=== PATIENT | male | born 1985 | race Caucasian/White ===

== ENCOUNTER 2018-05-14 14:34 | Emergency (ER) | payer OTHER ==
[2018-05-14 15:37] LABS: BASOPHILS % (AUTO) 0.8 % (0.0-5.0); EOSINOPHILS % (AUTO) 0.8 % (0.0-8.0); HEMATOCRIT 39.9 % (42-54); LYMPHOCYTES % (AUTO) 19.3 % (21.0-51.0); MEAN CORPUSCULAR HEMOGLOBIN 29.6 pg (27.0-33.0); MEAN CORPUSCULAR HGB CONC 33.6 g/dL (32.0-36.0); MEAN CORPUSCULAR VOLUME 88.3 fL (79-99); MONOCYTES % (AUTO) 7.7 % (3.0-13.0); NEUTROPHILS % (AUTO) 71.4 % (40.0-77.0); PLATELET COUNT (AUTO) 256 K/uL (130-400); RED BLOOD CELL COUNT(AUTO) 4.52 MIL/uL (4.50-6.20); RED CELL DISTRIBUTION WIDTH 13.3 % (11.0-15.5); WHITE BLOOD COUNT (AUTO) 8.4 K/uL (4.8-10.8)
[2018-05-14 15:49] LABS: CARBON DIOXIDE 27 mmol/L (21-32); CHLORIDE 102 mmol/L (101-111); CREATININE 1.1 mg/dL (0.5-1.5); GLOMERULAR FILTR. RATE CALC 83 mL/min (>60); GLUCOSE,RANDOM 100 mg/dL (70-105); SODIUM SERUM 138 mmol/L (136-145); UREA NITROGEN, BLOOD 12 mg/dL (7-18)
[2018-05-14 15:51] LABS: INR 0.93 (0.85-1.15); PARTIAL THROMBOPLASTIN TIME 30.9 SEC (26.3-35.5); PROTHROMBIN TIME 9.8 SEC (9.6-11.6)
[2018-05-14] MEDS ORDERED: SODIUM CHLORIDE 0.9% 1000ML 1,000 ML IV ONE (15:51)
[2018-05-14 15:54] LABS: ALANINE AMINOTRANSFERASE 37 U/L (12-78); ALBUMIN 4.1 g/dL (3.5-5.0); ALCOHOL, BLOOD < 3 mg/dL (0-10); ASPARTATE AMINOTRANSFERASE 18 U/L (10-37); BILIRUBIN,TOTAL 0.5 mg/dL (0.2-1.0); CREATINE KINASE, TOTAL 135 U/L (21-232); TOTAL PROTEIN, SERUM 7.9 g/dL (6.0-8.3)
[2018-05-14 16:00] LABS: ACETAMINOPHEN < 1 mcg/mL (10-29); SALICYLATE < 2.8 mg/dL (2.8-20.0)
[2018-05-14 16:01] LABS: APPEARANCE,URINE Clear (CLEAR); BILIRUBIN,URINE Negative (NEGATIVE); COLOR,URINE Yellow (YELLOW); GLUCOSE, URINE (UA) Negative (NEGATIVE); KETONES,URINE Negative (NEGATIVE); LEUKOCYTE ESTERASE ,URINE Negative (NEGATIVE); NITRATE,URINE Negative (NEGATIVE); OCCULT BLOOD,URINE Negative (NEGATIVE); PH,URINE 6.5 (5.0-8.0); PROTEIN,URINE Negative (NEGATIVE); UROBILINOGEN,URINE 0.2 mg/dL (0.2-1.0)
[2018-05-14 16:09] LABS: AMPHET/METH SCREEN,URINE NEGATIVE (NEGATIVE); BARBITURATE SCREEN, URINE NEGATIVE (NEGATIVE); BENZODIAZEPINES SCREEN,URINE POSITIVE (NEGATIVE); CANNABINOID SCREEN,URINE NEGATIVE (NEGATIVE); COCAINE SCREEN,URINE NEGATIVE (NEGATIVE); OPIATE SCREEN,URINE NEGATIVE (NEGATIVE); PHENCYCLIDINE SCREEN,URINE NEGATIVE (NEGATIVE)
[2018-05-14] MEDS ORDERED: TRAMADOL HCL 50 MG TABLET ONE (19:58)
== END 2018-05-14 20:52 | disposition home or self-care (01) ==
LOC: EDH 14:34
DX: S06.9X0A Unspecified intracranial injury without loss of consciousness, initial encounter (principal); R44.0 Auditory hallucinations; R47.81 Slurred speech; R53.83 Other fatigue; T42.4X5A Adverse effect of benzodiazepines, initial encounter; X58.XXXA Exposure to other specified factors, initial encounter; Y93.89 Activity, other specified; Y99.8 Other external cause status
CPT/HCPCS: 36415; 70450; 80053; 80305; 81003; 82550; 84484; 85025; 85610; 85730; 93005; 99284; G0480 ×2; G0481; J7030

== ENCOUNTER 2018-06-04 22:12 | Emergency (ER) | payer OTHER ==
[2018-06-04 22:37] LABS: APPEARANCE,URINE Clear (CLEAR); BILIRUBIN,URINE Negative (NEGATIVE); COLOR,URINE Yellow (YELLOW); GLUCOSE, URINE (UA) Negative (NEGATIVE); KETONES,URINE Negative (NEGATIVE); LEUKOCYTE ESTERASE ,URINE Negative (NEGATIVE); NITRATE,URINE Negative (NEGATIVE); OCCULT BLOOD,URINE Negative (NEGATIVE); PH,URINE 6.5 (5.0-8.0); PROTEIN,URINE Negative (NEGATIVE); UROBILINOGEN,URINE 0.2 mg/dL (0.2-1.0)
[2018-06-04 22:43] LABS: EOSINOPHILS % (AUTO) 1.4 % (0.0-8.0); HEMATOCRIT 42.6 % (42-54); LYMPHOCYTES % (AUTO) 20.9 % (21.0-51.0); MEAN CORPUSCULAR HEMOGLOBIN 29.3 pg (27.0-33.0); MEAN CORPUSCULAR VOLUME 88.8 fL (79-99); MONOCYTES % (AUTO) 9.4 % (3.0-13.0); NEUTROPHILS % (AUTO) 67.3 % (40.0-77.0); NUCLEATED RED BLOOD CELLS 0.1 % (0.0-0.19); PLATELET COUNT (AUTO) 301 K/uL (130-400); RED BLOOD CELL COUNT(AUTO) 4.79 MIL/uL (4.50-6.20); RED CELL DISTRIBUTION WIDTH 13.2 % (11.0-15.5); WHITE BLOOD COUNT (AUTO) 8.6 K/uL (4.8-10.8)
[2018-06-04 22:44] LABS: AMPHET/METH SCREEN,URINE NEGATIVE (NEGATIVE); BARBITURATE SCREEN, URINE NEGATIVE (NEGATIVE); BENZODIAZEPINES SCREEN,URINE POSITIVE (NEGATIVE); CANNABINOID SCREEN,URINE NEGATIVE (NEGATIVE); COCAINE SCREEN,URINE NEGATIVE (NEGATIVE); OPIATE SCREEN,URINE NEGATIVE (NEGATIVE); PHENCYCLIDINE SCREEN,URINE NEGATIVE (NEGATIVE)
[2018-06-04 22:55] LABS: CARBON DIOXIDE 31 mmol/L (21-32); CHLORIDE 100 mmol/L (101-111); CREATININE 1.1 mg/dL (0.5-1.5); GLOMERULAR FILTR. RATE CALC 83 mL/min (>60); GLUCOSE,RANDOM 77 mg/dL (70-105); POTASSIUM 3.7 mmol/L (3.5-5.1); SODIUM SERUM 141 mmol/L (136-145); UREA NITROGEN, BLOOD 10 mg/dL (7-18)
[2018-06-04 22:59] LABS: ALANINE AMINOTRANSFERASE 29 U/L (12-78); ASPARTATE AMINOTRANSFERASE 17 U/L (10-37); BILIRUBIN,TOTAL 0.5 mg/dL (0.2-1.0); SALICYLATE < 2.8 mg/dL (2.8-20.0); TOTAL PROTEIN, SERUM 8.4 g/dL (6.0-8.3)
[2018-06-04 23:00] LABS: ACETAMINOPHEN < 1 mcg/mL (10-29); ALCOHOL, BLOOD < 3 mg/dL (0-10)
== END 2018-06-05 16:48 | disposition short-term general hospital (02) ==
LOC: EDH 22:12
DX: T14.91XA Suicide attempt, initial encounter (principal); F20.9 Schizophrenia, unspecified; G89.29 Other chronic pain; M54.9 Dorsalgia, unspecified; X83.8XXA Intentional self-harm by other specified means, initial encounter; Y93.89 Activity, other specified; Y92.89 Other specified places as the place of occurrence of the external cause; Y99.8 Other external cause status
CPT/HCPCS: 36415; 80053; 80305; 81003; 85025; 99285; G0480 ×2; G0481

== ENCOUNTER 2019-02-26 14:10 | Emergency (ER) | payer OTHER ==
[2019-02-26 15:03] LABS: BASOPHILS % (AUTO) 0.7 % (0.0-5.0); EOSINOPHILS % (AUTO) 0.3 % (0.0-8.0); HEMATOCRIT 42.2 % (42-54); LYMPHOCYTES % (AUTO) 11.1 % (21.0-51.0); MEAN CORPUSCULAR HEMOGLOBIN 29.9 pg (27.0-33.0); MEAN CORPUSCULAR HGB CONC 34.3 g/dL (32.0-36.0); MEAN CORPUSCULAR VOLUME 87.1 fL (79-99); MONOCYTES % (AUTO) 9.8 % (3.0-13.0); NEUTROPHILS % (AUTO) 78.1 % (40.0-77.0); PLATELET COUNT (AUTO) 314 K/uL (130-400); RED BLOOD CELL COUNT(AUTO) 4.85 MIL/uL (4.50-6.20); RED CELL DISTRIBUTION WIDTH 13.8 % (11.0-15.5); WHITE BLOOD COUNT (AUTO) 12.3 K/uL (4.8-10.8)
[2019-02-26 15:47] LABS: CARBON DIOXIDE 25 mmol/L (21-32); CHLORIDE 99 mmol/L (101-111); CREATININE 1.3 mg/dL (0.5-1.5); GLOMERULAR FILTR. RATE CALC 68 mL/min (>60); GLUCOSE,RANDOM 90 mg/dL (70-105); POTASSIUM 3.6 mmol/L (3.5-5.1); SODIUM SERUM 137 mmol/L (136-145); UREA NITROGEN, BLOOD 8 mg/dL (7-18)
[2019-02-26 16:02] LABS: ALANINE AMINOTRANSFERASE 19 U/L (12-78); ALBUMIN 4.6 g/dL (3.5-5.0); ALCOHOL, BLOOD < 3 mg/dL (0-10); ASPARTATE AMINOTRANSFERASE 17 U/L (10-37); BILIRUBIN,TOTAL 0.7 mg/dL (0.2-1.0); SALICYLATE < 2.8 mg/dL (2.8-20.0)
[2019-02-26 16:03] LABS: CREATINE KINASE, TOTAL 548 U/L (21-232)
[2019-02-26 16:28] LABS: ACETAMINOPHEN < 1 mcg/mL (10-29)
== END 2019-02-26 17:17 | disposition home or self-care (01) ==
LOC: EDH 14:10
DX: F20.9 Schizophrenia, unspecified (principal); F43.10 Post-traumatic stress disorder, unspecified; F41.9 Anxiety disorder, unspecified; Z72.0 Tobacco use
CPT/HCPCS: 36415; 80053; 82550; 85025; 93005; 99285; G0480 ×2; G0481

== ENCOUNTER 2019-03-13 15:16 | Inpatient (IN) | payer OTHER ==
[~2019-03-13] VITALS: Ht 152.4 cm; Wt 97.1 kg
[2019-03-13 15:59] LABS: BASOPHILS % (AUTO) 0.5 % (0.0-5.0); EOSINOPHILS % (AUTO) 0.8 % (0.0-8.0); LYMPHOCYTES % (AUTO) 15.2 % (21.0-51.0); MEAN CORPUSCULAR HEMOGLOBIN 29.6 pg (27.0-33.0); MEAN CORPUSCULAR HGB CONC 33.7 g/dL (32.0-36.0); MONOCYTES % (AUTO) 8.1 % (3.0-13.0); NEUTROPHILS % (AUTO) 75.4 % (40.0-77.0); PLATELET COUNT (AUTO) 284 K/uL (130-400); RED BLOOD CELL COUNT(AUTO) 4.55 MIL/uL (4.50-6.20); RED CELL DISTRIBUTION WIDTH 13.9 % (11.0-15.5); WHITE BLOOD COUNT (AUTO) 10.8 K/uL (4.8-10.8)
[2019-03-13 16:43] LABS: ALANINE AMINOTRANSFERASE 31 U/L (12-78); ALBUMIN 3.9 g/dL (3.5-5.0); ALCOHOL, BLOOD < 3 mg/dL (0-10); ASPARTATE AMINOTRANSFERASE 41 U/L (10-37); BILIRUBIN,DIRECT 0.1 mg/dL (0.0-0.3); BILIRUBIN,TOTAL 0.6 mg/dL (0.2-1.0); CHLORIDE 102 mmol/L (101-111); CREATININE 1.1 mg/dL (0.5-1.5); GLOMERULAR FILTR. RATE CALC 82 mL/min (>60); GLUCOSE,RANDOM 120 mg/dL (70-105); SODIUM SERUM 138 mmol/L (136-145); TOTAL PROTEIN, SERUM 7.9 g/dL (6.0-8.3); UREA NITROGEN, BLOOD 7 mg/dL (7-18)
[2019-03-13 16:47] LABS: ACETAMINOPHEN < 1 mcg/mL (10-29); SALICYLATE < 2.8 mg/dL (2.8-20.0)
[2019-03-13 16:48] LABS: CREATINE KINASE, TOTAL 1374 U/L (21-232)
[2019-03-13] MEDS ORDERED: SODIUM CHLORIDE 0.9% 1000ML 1,000 ML IV ONE ×2 (16:52→17:54)
[2019-03-13 16:55] LABS: CARBON DIOXIDE 26 mmol/L (21-32)
[2019-03-13] MEDS ORDERED: ZIPRASIDONE MESYLATE 20 MG/VIAL IM ONE (19:04)
[2019-03-13] MEDS: FAMOTIDINE/PF 20 MG/2 ML VIAL IV SCH (21:00)
[2019-03-13] MEDS ORDERED: QUET200T29 PO (23:39)
[2019-03-13] MEDS ORDERED: QUET300T44 PO (23:39)
[2019-03-14 05:47] LABS: EOSINOPHILS % (AUTO) 3.6 % (0.0-8.0); LYMPHOCYTES % (AUTO) 35.3 % (21.0-51.0); MEAN CORPUSCULAR HEMOGLOBIN 30.2 pg (27.0-33.0); MEAN CORPUSCULAR HGB CONC 34.1 g/dL (32.0-36.0); MEAN CORPUSCULAR VOLUME 88.4 fL (79-99); MONOCYTES % (AUTO) 8.8 % (3.0-13.0); NEUTROPHILS % (AUTO) 51.3 % (40.0-77.0); PLATELET COUNT (AUTO) 283 K/uL (130-400); RED BLOOD CELL COUNT(AUTO) 4.52 MIL/uL (4.50-6.20); RED CELL DISTRIBUTION WIDTH 14.3 % (11.0-15.5)
[2019-03-14 05:59] LABS: POTASSIUM 4.2 mmol/L (3.5-5.1)
[2019-03-14] MEDS: SODIUM CHLORIDE 0.9% 1000ML 1,000 ML IV SCH ×2 (06:06→16:35)
[2019-03-14 06:13] LABS: ALBUMIN 3.4 g/dL (3.5-5.0); BILIRUBIN,TOTAL 0.6 mg/dL (0.2-1.0); TOTAL PROTEIN, SERUM 7.2 g/dL (6.0-8.3)
[2019-03-14] MEDS ORDERED: SODIUM CHLORIDE 0.9% 1000ML 1,000 ML IV ONE (06:22)
[2019-03-14 09:08] VITALS: BP 99/55
[2019-03-14] MEDS: FAMOTIDINE/PF 20 MG/2 ML VIAL IV SCH ×2 (09:30→19:41)
[2019-03-14] MEDS: OLANZAPINE 5 MG TAB PO SCH (09:44)
[2019-03-14] MEDS: QUETIAPINE FUMARATE 100 MG TAB PO SCH ×2 (09:44→19:41)
[2019-03-14 11:48] VITALS: BP 115/65
[2019-03-14 15:39] VITALS: BP 128/77
[2019-03-14] MEDS ORDERED: ACETAMINOPHEN 325 MG TAB PO PRN (16:30)
[2019-03-14] MEDS ORDERED: ACETAMINOPHEN 325 MG TAB ONE (16:34)
--- NOTE | 2019-03-14 17:00 | NUR ---
CLEANED RIGHT FOOT WITH NORMAL SALINE AND APPLIED WET TO DRY DRESSING. PATIENT TOLERATED PROCEDURE WELL. INFORMED DR. SERNA REGARDING PATIENTS CK LEVELS.
--- NOTE | 2019-03-14 17:44 | NUR ---
INITIAL: Chart reviewed/Info discussed w Primary nurse. Met w pt this afternoon, not family @ the bedside. Pt mentions that prior to admission was living alone the past 2 weeks. He is independent w ambulation and ADLs. does not own any DME. Psych consult pending. Noted in chart Section, pt w lisetteo on IVFs. Discussed w nursing plan is for [facility] eval once cleared medically. CM to continue to follow. Addendum: 03/14/19 at 1747 by JIM NAVA CM Amended: Links added.
[2019-03-14 19:06] VITALS: BP 105/66
--- NOTE | 2019-03-14 19:49 | NUR ---
FAMILY CONCERN Father at bedside and voiced concern that patient is not receiving antibiotics for his rt foot wound.Pt also wants something for pain stronger than Tylenol.Father also asked about Geodon they gave him in ER,he said he might need it tonight.I told them I will paged STAFF AIR DEFENSE OFFICER controls technician.
[2019-03-14] MEDS ORDERED: ZIPRASIDONE MESYLATE 20 MG/VIAL IM PRN (20:00)
[2019-03-14] MEDS: KETOROLAC TROMETHAMINE 30MG/ML IV PRN (22:14)
[2019-03-14] MEDS: CEFTRIAXONE SODIUM 1 GM IVP SCH (22:22)
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
[2019-03-14 23:14] VITALS: BP 129/63
[2019-03-14] MEDS ORDERED: HYDROXYZINE HCL 25 MG TABLET ONE (23:49)
[2019-03-15] MEDS: LORAZEPAM 2 MG/ML 1 ML VIAL IVP PRN ×2 (00:53→22:06)
--- NOTE | 2019-03-15 00:55 | NUR ---
ANXIETY Pt still could not sleep after Atarax given,feels anxious,Ativan given.
[2019-03-15] MEDS: SODIUM CHLORIDE 0.9% 1000ML 1,000 ML IV SCH ×4 (01:08→22:06)
--- NOTE | 2019-03-15 01:53 | NUR ---
MED EFFECT Pt quietly resting,eyes closed.Respirations even and unlabored.
[2019-03-15 03:27] VITALS: BP 124/82
[2019-03-15 05:02] LABS: HEMATOCRIT 35.2 % (42-54); LYMPHOCYTES % (AUTO) 38.2 % (21.0-51.0); MEAN CORPUSCULAR HEMOGLOBIN 29.9 pg (27.0-33.0); MEAN CORPUSCULAR HGB CONC 33.7 g/dL (32.0-36.0); MEAN CORPUSCULAR VOLUME 88.6 fL (79-99); MONOCYTES % (AUTO) 6.3 % (3.0-13.0); NEUTROPHILS % (AUTO) 51.5 % (40.0-77.0); NUCLEATED RED BLOOD CELLS 0.1 % (0.0-0.19); PLATELET COUNT (AUTO) 254 K/uL (130-400); RED BLOOD CELL COUNT(AUTO) 3.97 MIL/uL (4.50-6.20); RED CELL DISTRIBUTION WIDTH 14.2 % (11.0-15.5); WHITE BLOOD COUNT (AUTO) 5.6 K/uL (4.8-10.8)
[2019-03-15 05:22] LABS: ALBUMIN 2.8 g/dL (3.5-5.0); BILIRUBIN,TOTAL 0.3 mg/dL (0.2-1.0); POTASSIUM 3.8 mmol/L (3.5-5.1)
[2019-03-15 07:00] VITALS: BP 105/67
--- NOTE | 2019-03-15 07:00 | NUR ---
BEHAVIOR Pt refusing telemetry,states,"I'm done with that".He also disconnected his iv from his hand,saw iv dripping on the floor.Explained purpose of treatment.Report given to Mai JESSICA.
[2019-03-15] MEDS: FAMOTIDINE/PF 20 MG/2 ML VIAL IV SCH ×2 (08:55→20:41)
[2019-03-15] MEDS: OLANZAPINE 5 MG TAB PO SCH (08:56)
[2019-03-15] MEDS: QUETIAPINE FUMARATE 100 MG TAB PO SCH ×2 (08:57→20:42)
[2019-03-15] MEDS: KETOROLAC TROMETHAMINE 30MG/ML IV PRN (09:03)
[2019-03-15 11:00] VITALS: BP 136/87
--- NOTE | 2019-03-15 13:03 | NUR ---
PATIENT REQUESTED PAIN MEDICATION FOR RIGHT FOOT PAIN, TORADOL NOT DUE AT THIS TIME. HOSPITALIST VEGETABLE SCULLION WAS MADE AWARE AND SHE SAID SHE WILL ROUND ON THE PATIENT SHORTLY AND ORDER ADDITIONAL PAIN MEDICATION. DR GUTHRIE WAS PAGED REGARDING THE CONSULT. PENDING CALL BACK. MARY FROM [facility] CAME IN TO CHECK TREATMENT PLAN AND PROGRESS OF THE PATIENT.
[2019-03-15] MEDS ORDERED: KETOROLAC TROMETHAMINE 30MG/ML IV PRN (13:30)
[2019-03-15] MEDS ORDERED: HONEY 1 APPL/ML TUBE TP SCH ×2 (14:00→21:00)
--- NOTE | 2019-03-15 15:04 | NUR ---
SECOND CALL SENT TO DR GUTHRIE REGARDING CONSULT. MESSAGE LEFT FOR MD, PENDING CALL BACK.
[2019-03-15 16:00] VITALS: BP 115/72
--- NOTE | 2019-03-15 17:11 | NUR ---
NO CALL BACK RECEIVED FROM DR GUTHRIE, CHARGE NURSE ETHEL WAS MADE AWARE AND HOSPITALIST MUSHROOM GROWER WAS NOTIFIED.
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
--- NOTE | 2019-03-15 18:21 | NUR ---
RETURNED TO THE UNIT BY SECURITY AND THE SUPERVISOR DYER. NOW HE IS PLACED ON 1:1 MONITORING. HE HAD REMOVED HIS IV ACCESS AND HIS FOOT DRESSING.
[2019-03-15 20:14] VITALS: BP 130/87
[2019-03-15] MEDS: CEFTRIAXONE SODIUM 1 GM IVP SCH (20:44)
[2019-03-15] MEDS: HYDROXYZINE HCL 25 MG TABLET PO SCH ×2 (23:57)
[2019-03-16] VITALS: BP 144/85
[2019-03-16] MEDS: SODIUM CHLORIDE 0.9% 1000ML 1,000 ML IV SCH (02:23)
[2019-03-16] MEDS: LORAZEPAM 2 MG/ML 1 ML VIAL IVP PRN (02:25)
[2019-03-16 04:31] VITALS: BP 133/84
[2019-03-16 05:17] LABS: HEMATOCRIT 36.3 % (42-54); MEAN CORPUSCULAR HEMOGLOBIN 29.9 pg (27.0-33.0); MEAN CORPUSCULAR HGB CONC 34.6 g/dL (32.0-36.0); MEAN CORPUSCULAR VOLUME 86.6 fL (79-99); PLATELET COUNT (AUTO) 303 K/uL (130-400); RED CELL DISTRIBUTION WIDTH 13.4 % (11.0-15.5); WHITE BLOOD COUNT (AUTO) 6.7 K/uL (4.8-10.8)
[2019-03-16 05:43] LABS: ALBUMIN 3.4 g/dL (3.5-5.0); BILIRUBIN,TOTAL 0.4 mg/dL (0.2-1.0); POTASSIUM 3.1 mmol/L (3.5-5.1); TOTAL PROTEIN, SERUM 6.9 g/dL (6.0-8.3)
[2019-03-16 07:45] LABS: LYMPHOCYTES % (MANUAL) 22 % (22-44); MONOCYTES % (MANUAL) 6 % (2-9); SEGMENTED NEUTROPHILS % 72 % (40-70)
[2019-03-16 07:46] LABS: MAN.DIFF COMMENT-IMPRESSION MANUAL DIFFERENTIAL; PLATELET MORPHOLOGY COMMENT ADEQUATE
[2019-03-16 08:00] VITALS: BP 150/93
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
[2019-03-16] MEDS: OLANZAPINE 5 MG TAB PO SCH (10:19)
[2019-03-16] MEDS: QUETIAPINE FUMARATE 100 MG TAB PO SCH (10:19)
[2019-03-16] MEDS: FAMOTIDINE/PF 20 MG/2 ML VIAL IV SCH (10:19)
[2019-03-16] MEDS ORDERED: SILV20CR11 TP (11:38)
[2019-03-16 12:00] VITALS: BP 142/84
--- NOTE | 2019-03-16 14:15 | NUR ---
NOTE DR GUTHRIE CAME IN A CONSULT AND HE ASSESSED PATIENT AND FOUND HIM TO BE CLEARED TO GO HOME. THERE IS NO REASON TO SECTION HIM AND HE CAN GO AND FOLLOW UP WITH [facility] PSYCHIATRIST AND DOCTORS. PATIENT IS ANXIOUS TO LEAVE NOW. HE WAS SEEN BY PRIMARY TEAM, ENRIQUE WILSON, AND HE WILL BE DISCHARGED LATER THIS AFTERNOON. DENIES HEARING ANY VOICED. DOES NOT HAVE ANY SUICIDAL THINKING AND HAS NOT BEEN AGGRESSIVE TOWARDS STAFF OR WANT TO HURT HIMSELF. WILL CONTINUE WITH SITTER AND THEN DC HOME.
[2019-03-16 15:49] VITALS: BP 160/97
--- NOTE | 2019-03-16 16:15 | NUR ---
NOTE DISCHARGE INSTRUCTIONS GIVEN AT THIS TIME. HE DID NOT WANT TO WAIT FOR ANYONE OR WAIT FOR ME TO CALL [facility] FOR ANY ASSISTANCE. WILL NTIFY HIS COMMUTATOR INSPECTOR ABOUT THIS.
== END 2019-03-16 16:30 | disposition home or self-care (01) | DRG 558 ==
LOC: EDH 15:16 → OBSVTOIN 20:06 → EDHIP 20:06 → 3BH 03-14 08:07 → 3CH 03-14 11:12
PROVIDERS: ADMIT Family Medicine; ATTEND Family Medicine
DX: M62.82 Rhabdomyolysis (principal); T25.321A Burn of third degree of right foot, initial encounter; F20.9 Schizophrenia, unspecified; F19.10 Other psychoactive substance abuse, uncomplicated; F43.10 Post-traumatic stress disorder, unspecified; F10.10 Alcohol abuse, uncomplicated; R00.0 Tachycardia, unspecified; F41.9 Anxiety disorder, unspecified; F17.200 Nicotine dependence, unspecified, uncomplicated; Z91.14 Patient's other noncompliance with medication regimen; V29.9XXA Motorcycle rider (driver) (passenger) injured in unspecified traffic accident, initial encounter; Y93.89 Activity, other specified; Y92.89 Other specified places as the place of occurrence of the external cause; Y99.8 Other external cause status; Z71.6 Tobacco abuse counseling
CPT/HCPCS: 36415; 80048; 80053; 80076; 82550; 83605; 84484; 85025; 87070; 87076; 87077; 87186; 93005; G0378; G0480; G0481; J0696; J1885; J2060; J3486; J3490; J7030